=== PATIENT | female | born 1950 | race Caucasian/White ===

== ENCOUNTER 2017-08-23 05:40 | Day surgery (SDC) | payer OTHER ==
[2017-08-22 11:16] VITALS: BMI 32.0
[~2017-08-23] VITALS: Ht 157.5 cm; Wt 82.5 kg
[2017-08-23] VITALS (10 sets, daily range): BP systolic 96–130; BP diastolic 50–83; PULSE 68–75; RESP 13–18; Ht 157.5 cm; Wt 82.5 kg
[2017-08-23] MEDS ORDERED: CYCLOPENTOLATE 2% 2 ML OPH OPER SCH (06:00)
[2017-08-23] MEDS ORDERED: NEPAFENAC 0.1% 3 ML OPH OPER SCH (06:00)
[2017-08-23] MEDS ORDERED: PHENYLephrine 10% 5 ML OPH OPER SCH (06:00)
[2017-08-23] MEDS ORDERED: MOXIFLOXACIN 0.5% 3 ML OPH OPER SCH (06:00)
[2017-08-23] MEDS ORDERED: BUPIVACAINE 0.75% (MPF) 10 ML INJ ONE (06:46)
[2017-08-23] MEDS ORDERED: LIDOCAINE 1% (MPF) 10 ML INJ ONE (06:46)
[2017-08-23] MEDS ORDERED: TIMOLOL 0.5% 5 ML OPH ONE ×2 (06:47→06:49)
[2017-08-23] MEDS ORDERED: EPINEPHrine 1 MG INJ ONE (06:49)
[2017-08-23] MEDS ORDERED: ATOR40TA68 PO (06:52)
[2017-08-23] MEDS ORDERED: METO25TA4 PO (06:52)
[2017-08-23] MEDS ORDERED: ERGO500037 PO (06:52)
[2017-08-23] MEDS ORDERED: ASPI-664 PO (06:52)
[2017-08-23] MEDS ORDERED: LOSA50TA6 PO (06:52)
[2017-08-23] MEDS ORDERED: CARBACHOL 0.01% 1.5 ML OPH INJ ONE (06:54)
[2017-08-23] MEDS ORDERED: SODIUM BICARBONATE (IV ADD) 50 ML ONE (06:55)
[2017-08-23] MEDS ORDERED: LIDOCAINE 2% (SDV) 5 ML INJ ONE ×2 (07:03→07:34)
[2017-08-23] MEDS ORDERED: LIDOCAINE 1% (MPF) 10 ML INJ INJ ONE (07:12)
--- NOTE | 2017-08-23 07:15 | HPN ---
Date/Time of Note Date/Time of Note DATE: 08/23/17 TIME: 07:15 Interval H&P Admission Note Pt. seen H&P reviewed: No system changes KIKE VALDEZ MD Aug 23, 2017 07:15
[2017-08-23] MEDS ORDERED: HYDROmorphONE (0.2 MG/ML) 10ML SYG IV PRN (07:30)
[2017-08-23] MEDS ORDERED: LABETALOL HCL 20MG INJ IV PRN (07:30)
[2017-08-23] MEDS ORDERED: PHENYLephrine 10% 5 ML OPH OPER ONE (07:30)
[2017-08-23] MEDS ORDERED: ONDANSETRON 4 MG INJ IV PRN (07:30)
[2017-08-23] MEDS ORDERED: OXYCODONE/ACETAMINOPHEN (5/325) TAB PO PRN (07:30)
[2017-08-23] MEDS ORDERED: hydrALAzine 20 MG INJ IV PRN (07:30)
[2017-08-23] MEDS ORDERED: FENTAnyl 50 MCG/ML VIAL IV PRN (07:30)
[2017-08-23] MEDS ORDERED: PROPOFOL 20 ML ONE (07:34)
[2017-08-23] MEDS ORDERED: MIDAZOLAM 1 MG/ML 2 ML INJ ONE (07:34)
[2017-08-23] MEDS ORDERED: FENTAnyl 50 MCG/ML VIAL ONE (07:43)
[2017-08-23] MEDS ORDERED: CARBACHOL 0.01% 1.5 ML OPH INJ IO ONE (08:19)
[2017-08-23] MEDS ORDERED: TIMOLOL 0.5% 5 ML OPH LEFT EYE ONE (08:22)
--- NOTE | 2017-08-23 08:37 | SIPON ---
Date/Time of Note Date/Time of Note DATE: 08/23/17 TIME: 08:34 Operative Report Preoperative Diagnosis cataract left eye Postoperative Diagnosis same Operation/Procedure Performed cataract extraction with lens implant Surgeon see signature line household assistant none Anesthesia: MAC Estimated blood loss: none Transfusion Required none Specimen none Grafts/Implants lens implant Complications none KIKE VALDEZ MD Aug 23, 2017 08:37
--- NOTE | 2017-08-23 08:37 | SIPON ---
Date/Time of Note Date/Time of Note DATE: 08/23/17 TIME: 08:34 Operative Report Preoperative Diagnosis cataract left eye Postoperative Diagnosis same Operation/Procedure Performed cataract extraction with lens implant Surgeon see signature line technical assistance consultant none Anesthesia: MAC Estimated blood loss: none Transfusion Required none Specimen none Grafts/Implants lens implant Complications none KIKE VALDEZ MD Aug 23, 2017 08:37
--- NOTE | 2017-08-23 08:37 | SIPON ---
Date/Time of Note Date/Time of Note DATE: 08/23/17 TIME: 08:34 Operative Report Preoperative Diagnosis cataract left eye Postoperative Diagnosis same Operation/Procedure Performed cataract extraction with lens implant Surgeon see signature line surgical physician assistant none Anesthesia: MAC Estimated blood loss: none Transfusion Required none Specimen none Grafts/Implants lens implant Complications none KIKE VALDEZ MD Aug 23, 2017 08:37
--- NOTE | 2017-08-23 13:57 | OPR ---
DATE OF OPERATION: 08/23/2017 SURGEON: Kike Mooney MD TRANSMISSION MAINTENANCE SUPERVISOR: None. PREOPERATIVE DIAGNOSIS: Senile nuclear sclerotic cataract left eye. POSTOPERATIVE DIAGNOSIS: Senile nuclear sclerotic cataract, left eye. OPERATION: Kelman phacoemulsification with implantation of intraocular lens left eye. DESCRIPTION OF PROCEDURE: Following standard preparation and draping of the patient, a lid speculum was placed for immobilization of the lids. A SuperBlade incision was made at the corneal limbal ju nction for access into the anterior chamber. Approximately 0.03 mL of nonpreserved 1% Xylocaine was instilled into the anterior chamber, and after approximately 5 to 10 seconds, this was replaced wit h Viscoat. A clear corneal incision was then made using the 3.2 mm keratome, following which an ant erior circular capsulorrhexis was made. The major portion of the lens cortex and nucleus were then dislocated from the capsular bag using hydrodissection. The KPE tip was introduced into the eye and controlling tumbling of the lens with a 2-handed technique, the major portion of the lens cortex an d nucleus was removed, maintaining the lens in the plane of the iris. The remaining cortical materi al was removed via the irrigating aspirating instrument. The capsular bag and the anterior chamber were now reformed using Viscoat. The proper power lens was then placed in the capsular bag. The vi scoelastic was then removed from the eye and the eye reformed with balanced salt solution. One 10-0 Vicryl suture was then used to ensure closure of the corneal incision. The eye was reformed to nor mal pressure using balanced salt solution. The eye and cul-de-sacs were now simply flooded with 5% Betadine solution. One drop of Vigamox and 1 drop of Betagan solution were instilled into the eye. A light pressure dressing was applied, and the patient was returned to the recovery room in satisfa ctory condition. Dictated By: KIKE WOMACK/CARMELINA Conf#: [id number] DID#: [id number]
== END 2017-08-23 10:25 | disposition home or self-care (01) ==
LOC: SUR 05:40 → SDS 05:40 → SUR 10:25
PROVIDERS: ATTEND Ophthalmology
DX: H25.12 Age-related nuclear cataract, left eye (principal); I25.10 Atherosclerotic heart disease of native coronary artery without angina pectoris; E78.5 Hyperlipidemia, unspecified; I10 Essential (primary) hypertension
CPT/HCPCS: 66984; J0171; J2250; J3010; V2632; Z7512; Z7610

== ENCOUNTER → 2017-12-13 | Outpatient (CLI) | END | disposition home or self-care (01) ==